=== PATIENT | female | born 2000 | race Caucasian/White ===

== ENCOUNTER 2022-03-31 12:21 | Outpatient (CLI) | payer MEDICAID ==
[2022-04-01 11:47] LABS: SARS-CoV-2 PCR by NAA Not Detected (NotDetected)
== END 2022-03-31 12:22 | disposition home or self-care (01) ==
LOC: CSHLAB 12:21
PROVIDERS: ATTEND Family Medicine
DX: Z20.822 Contact with and (suspected) exposure to COVID-19 (principal)
CPT/HCPCS: U0003; U0005

== ENCOUNTER 2022-04-03 19:00 | Inpatient (IN) | payer MEDICAID, OTHER ==
[2022-04-05] MEDS ORDERED: Bupivacaine HCl 0.5%/Epinephrine 1:200,000/PF 30 ml Vial ONE (08:00)
[2022-04-05] MEDS ORDERED: Bupivacaine 0.25% HCL 30 ML VIAL ONE (08:00)
[2022-04-05] MEDS ORDERED: Misoprostol 200 MCG TAB PR PRN (19:02)
[2022-04-05] MEDS ORDERED: Promethazine HCl 25 MG/ML VIAL IM PRN (19:02)
[2022-04-05] MEDS ORDERED: hydrALAZINE 20 MG/ML VIAL SLOW IVP PRN (19:02)
[2022-04-05] MEDS ORDERED: Acetaminophen 500 MG TAB PO PRN (19:02)
[2022-04-05] MEDS ORDERED: Ondansetron PF 4 MG/2 ML Vial IVP PRN (19:02)
[2022-04-05] MEDS ORDERED: Lidocaine 1% (PF) 30 ML VIAL SC PRN (19:02)
[2022-04-05] MEDS ORDERED: Diphenoxylate HCl/Atropine Tablet PO PRN (19:02)
[2022-04-05] MEDS ORDERED: Ibuprofen 800 MG TAB PO PRN (19:02)
[2022-04-05] MEDS ORDERED: Carboprost 250 MCG/ML AMP IM PRN (19:02)
[2022-04-05] MEDS ORDERED: Methylergonovine 0.2 MG/ML VIAL IM PRN (19:02)
[2022-04-05 22:27] LABS: Hemoglobin 12.1 g/dL (12.0-15.5); Mean Corpuscular HGB CONC 34.8 g/dL (32.0-36.0); Mean Corpuscular Hemoglobin 31.6 pg (27.0-33.0); Mean Corpuscular Volume 90.9 fl (81.6-98.3); Mean Platelet Volume 11.7 fl (7.4-10.4); Platelet Count 192 10x3/uL (150-450); RBC Distribution Width 13.4 % (11.5-14.5); Red Blood Cell (RBC) Count 3.83 10x6/uL (3.90-5.03); White Blood Cell (WBC) Count 12.1 10x3/uL (3.5-10.5)
[2022-04-05 23:01] LABS: Hep B Surf Ag Non-Reactive S/CO (NonReactive); Syphilis Antibody Nonreactive (Nonreactive); Syphilis Antibody Index 0.05 S/CO (<1.00 Non-Reactive)
[2022-04-05 23:03] LABS: HBSAg Index 0.15 S/CO (0-0.99)
[2022-04-05 23:06] VITALS: BMI 32.5
[2022-04-05] MEDS ORDERED: NS w/ Oxytocin 30 units 500 ML IV SCH ×2 (23:59)
[2022-04-05] MEDS ORDERED: Misoprostol 100 MCG TAB VAG SCH (23:59)
[2022-04-05] MEDS ORDERED: Penicillin G Potassium 5 MILL.UNITS in Sodium Chloride 0.9% 100 ML IVPB SCH (23:59)
[2022-04-06] MEDS ORDERED: Fentanyl 2 mcg/Bup 0.1% Cadd 100 ML ONE (02:51)
[2022-04-06] MEDS ORDERED: ePHEDrine Sulfate 50 MG/10 ML VIAL SLOW IVP PRN (04:00)
[2022-04-06] MEDS ORDERED: Moisturizing Cream (Eucerin) 113 GM JAR TOP PRN (04:00)
[2022-04-06] MEDS ORDERED: Communication Order-Pharmacy FS SCH (04:00)
[2022-04-06] MEDS ORDERED: diphenhydrAMINE 50 MG/ML VIAL IVP PRN (04:00)
[2022-04-06] MEDS ORDERED: Naloxone HCl 0.4 mg/ml Vial IVP PRN ×2 (04:00)
[2022-04-06] MEDS ORDERED: Ondansetron PF 4 MG/2 ML Vial IVP PRN (04:00)
[2022-04-06] MEDS ORDERED: Promethazine HCl 25 MG/ML VIAL IM PRN (04:00)
[2022-04-06] MEDS ORDERED: Acetaminophen 325 MG TAB PO PRN (04:00)
[2022-04-06] MEDS ORDERED: Lactated Ringer's 500 ML IV PRN (04:00)
[2022-04-06] MEDS: Penicillin G 2.5 MILL.units 2.5 MILL.UNITS in Premix Bag 1 BAG IVPB SCH ×4 (05:12→19:18)
[2022-04-06] MEDS: Fentanyl 2 mcg/Bupivacaine 0.1% Cassette 100 ML EPIDURAL SCH ×2 (11:35→18:00)
[2022-04-06] MEDS: Lactated Ringer's 1,000 ML IV SCH ×2 (11:37→18:08)
[2022-04-06] MEDS ORDERED: Dextrose 5%-Lactated Ringers 1,000 ML IV SCH (12:30)
[2022-04-06] MEDS ORDERED: Ampicillin 2 GM VIAL ONE (23:47)
[2022-04-06] MEDS: Ampicillin 2 GM in Sodium Chloride 0.9% 100 ML IVPB SCH (23:55)
[2022-04-06] MEDS ORDERED: Gentamicin 400 MG in Sodium Chloride 0.9% 100 ML IVPB SCH (23:59)
[2022-04-06] MEDS ORDERED: Acetaminophen 500 MG TAB PO SCH (23:59)
[2022-04-07] MEDS ORDERED: Azithromycin 500 MG VIAL ONE (00:58)
[2022-04-07] MEDS ORDERED: Bicitra 30 ML UDCUP PO PRN (00:59)
[2022-04-07] MEDS ORDERED: ceFAZolin 2 GM/Dextrose 50 ML IVPB ONE (00:59)
[2022-04-07] MEDS ORDERED: Famotidine/PF 20 mg/2ml Vial SLOW IVP PRN (00:59)
[2022-04-07] MEDS ORDERED: ceFAZolin 2 GM/Dextrose 50 ML 2 GM in Premix Bag 1 BAG IVPB SCH (01:00)
[2022-04-07] MEDS ORDERED: Azithromycin 500 MG in Sodium Chloride 0.9% 250 ML 250 ML IVPB SCH (01:00)
[2022-04-07] MEDS ORDERED: Ondansetron PF 4 MG/2 ML Vial ONE (01:25)
[2022-04-07] MEDS ORDERED: Oxytocin 10 UNITS/ML VIAL ONE (01:25)
[2022-04-07] MEDS ORDERED: Morphine PF 10 MG/10 ML VIAL ONE (01:25)
[2022-04-07] MEDS ORDERED: Dexamethasone 4 mg/ml Vial ONE (01:25)
[2022-04-07] MEDS ORDERED: Phenylephrine 40 MG/NS 250 ML 250 ML ONE (01:27)
[2022-04-07] MEDS ORDERED: Promethazine HCl 25 MG SUPP PR PRN (01:35)
[2022-04-07] MEDS ORDERED: Ketorolac Tromethamine 30 MG/ML VIAL IVP PRN (01:35)
[2022-04-07] MEDS ORDERED: Promethazine HCl 25 MG/ML VIAL IM PRN ×2 (01:35→08:35)
[2022-04-07] MEDS ORDERED: Ondansetron PF 4 MG/2 ML Vial IVP PRN ×2 (01:35→08:35)
[2022-04-07] MEDS ORDERED: Ondansetron HCl/PF 4 MG/2 ML Vial IVP PRN (01:35)
[2022-04-07] MEDS ORDERED: Naloxone HCl 0.4 mg/ml Vial IVP PRN ×2 (01:35)
[2022-04-07] MEDS ORDERED: diphenhydrAMINE 50 MG/ML VIAL IVP PRN (01:35)
[2022-04-07] MEDS ORDERED: Meperidine HCl/PF 25 MG/ML VIAL SLOW IVP PRN (01:35)
[2022-04-07] MEDS ORDERED: Fentanyl 100 MCG/2 ML VIAL SLOW IVP PRN (01:35)
[2022-04-07] MEDS ORDERED: Moisturizing Cream (Eucerin) 113 GM JAR TOP PRN (01:35)
[2022-04-07] MEDS ORDERED: Naloxone HCl 0.4 mg/ml Vial IV PRN (01:35)
[2022-04-07] MEDS ORDERED: Communication Order-Pharmacy FS SCH (01:45)
[2022-04-07] MEDS ORDERED: Ketorolac Tromethamine 30 MG/ML VIAL IVP SCH (01:45)
[2022-04-07] MEDS ORDERED: Ketamine 50 MG/ML (10ML VIAL) ONE (01:46)
[2022-04-07] MEDS ORDERED: Midazolam HCl 2 mg/2 ml Vial ONE (01:46)
[2022-04-07 03:01] LABS: Prothrombin Time 10.6 sec (9.5-12.1)
[2022-04-07 03:09] LABS: PTT 33.7 sec (22.0-33.0)
[2022-04-07 03:15] LABS: Hemoglobin 10.9 g/dL (12.0-15.5); Mean Corpuscular HGB CONC 33.4 g/dL (32.0-36.0); Mean Corpuscular Hemoglobin 31.3 pg (27.0-33.0); Mean Corpuscular Volume 93.7 fl (81.6-98.3); Mean Platelet Volume 12.1 fl (7.4-10.4); Platelet Count 161 10x3/uL (150-450); RBC Distribution Width 13.7 % (11.5-14.5); Red Blood Cell (RBC) Count 3.48 10x6/uL (3.90-5.03); White Blood Cell (WBC) Count 17.1 10x3/uL (3.5-10.5)
[2022-04-07 04:06] LABS: D-Dimer Test 5.13 mg/L FEU (0.19-0.50)
[2022-04-07] MEDS ORDERED: Lactated Ringer's 1,000 ML IV SCH (07:00)
[2022-04-07] MEDS: Ampicillin 2 GM in Sodium Chloride 0.9% 100 ML IVPB SCH ×3 (07:06→17:20)
[2022-04-07] MEDS ORDERED: hydrALAZINE 20 MG/ML VIAL SLOW IVP PRN (08:35)
[2022-04-07] MEDS ORDERED: diphenhydrAMINE 25 MG CAP PO PRN (08:35)
[2022-04-07] MEDS ORDERED: NS w/ Oxytocin 30 units 500 ML IV SCH (08:35)
[2022-04-07] MEDS ORDERED: Bisacodyl 10 MG SUPP PR PRN (08:35)
[2022-04-07] MEDS ORDERED: Acetaminophen 325 MG TAB PO PRN (08:35)
[2022-04-07] MEDS ORDERED: Lanolin Ointment 7 GM TUBE TOP PRN (08:35)
[2022-04-07] MEDS ORDERED: Boostrix 0.5 ML (Tdap) VIAL IM ONE (08:35)
[2022-04-07] MEDS ORDERED: Simethicone Chewable 80 MG TAB PO PRN (08:35)
[2022-04-07] MEDS ORDERED: Ibuprofen 800 MG TAB PO SCH (09:00)
[2022-04-07] MEDS: Docusate 100 MG CAP PO SCH ×2 (09:07→21:37)
[2022-04-07] MEDS: Lactated Ringer's 1,000 ML IV SCH (09:07)
[2022-04-07] MEDS: Ferrous Sulfate 325 MG TAB PO SCH ×2 (09:07→21:12)
[2022-04-07] MEDS: Prenatal Vitamin 1 TAB PO SCH (09:08)
[2022-04-07] MEDS: Penicillin G 2.5 MILL.units 2.5 MILL.UNITS in Premix Bag 1 BAG IVPB SCH (09:26)
[2022-04-07 09:27] LABS: Hemoglobin 10.4 g/dL (12.0-15.5); Mean Corpuscular Volume 88.4 fl (81.6-98.3); Mean Platelet Volume 11.9 fl (7.4-10.4); Platelet Count 169 10x3/uL (150-450); RBC Distribution Width 15.7 % (11.5-14.5); Red Blood Cell (RBC) Count 3.36 10x6/uL (3.90-5.03); White Blood Cell (WBC) Count 20.8 10x3/uL (3.5-10.5)
[2022-04-07] MEDS ORDERED: Gentamicin 400 MG in Sodium Chloride 0.9% 100 ML IVPB SCH (09:30)
[2022-04-07] MEDS: Ibuprofen 800 MG TAB PO SCH ×2 (13:51→21:36)
[2022-04-07] MEDS: HYDROcodone/Acetaminophen 5/325 mg Tablet PO PRN ×2 (13:52→20:07)
[2022-04-08] MEDS: Ampicillin 2 GM in Sodium Chloride 0.9% 100 ML IVPB SCH ×2 (00:52→05:36)
[2022-04-08] MEDS: Ibuprofen 800 MG TAB PO SCH ×3 (05:36→22:04)
[2022-04-08] MEDS ORDERED: Butorphanol Tartrate 1 MG/ML VIAL SLOW IVP SCH (06:15)
[2022-04-08] MEDS: Lactated Ringer's 1,000 ML IV SCH ×2 (07:45→11:39)
[2022-04-08] MEDS: Ferrous Sulfate 325 MG TAB PO SCH ×2 (09:00→22:04)
[2022-04-08] MEDS: Prenatal Vitamin 1 TAB PO SCH (10:31)
[2022-04-08] MEDS: Docusate 100 MG CAP PO SCH ×2 (10:31→22:04)
[2022-04-08] MEDS: HYDROcodone/Acetaminophen 5/325 mg Tablet PO PRN ×2 (10:31→14:38)
[2022-04-09] MEDS: Ibuprofen 800 MG TAB PO SCH (05:40)
[2022-04-09] MEDS: Lactated Ringer's 1,000 ML IV SCH (07:46)
[2022-04-09] MEDS: Prenatal Vitamin 1 TAB PO SCH (08:37)
[2022-04-09] MEDS: Docusate 100 MG CAP PO SCH (08:37)
[2022-04-09] MEDS: Ferrous Sulfate 325 MG TAB PO SCH (08:42)
[2022-04-09 09:11] VITALS: BP 126/68; TEMP 98.5
[2022-04-09] MEDS: HYDROcodone/Acetaminophen 5/325 mg Tablet PO PRN (09:54)
== END 2022-04-09 12:30 | disposition home or self-care (01) | DRG 786 ==
LOC: CSHLD 04-05 18:40 → CSHPP 04-07 08:15
PROVIDERS: ADMIT Family Medicine; ATTEND Family Medicine
PROC: 3E033VJ Introduction of Other Hormone into Peripheral Vein, Percutaneous Approach (ICD-10-PCS; 2022-04-06)
PROC: 10907ZC Drainage of Amniotic Fluid, Therapeutic from Products of Conception, Via Natural or Artificial Opening (ICD-10-PCS; 2022-04-06)
PROC: 10H07YZ Insertion of Other Device into Products of Conception, Via Natural or Artificial Opening (ICD-10-PCS; 2022-04-06)
PROC: 10D00Z1 Extraction of Products of Conception, Low, Open Approach (ICD-10-PCS; principal; 2022-04-07)
PROC: 30233N1 Transfusion of Nonautologous Red Blood Cells into Peripheral Vein, Percutaneous Approach (ICD-10-PCS; 2022-04-07)
PROC: 30233K1 Transfusion of Nonautologous Frozen Plasma into Peripheral Vein, Percutaneous Approach (ICD-10-PCS; 2022-04-07)
DX: O48.0 Post-term pregnancy (principal); O41.1230 Chorioamnionitis, third trimester, not applicable or unspecified; O72.1 Other immediate postpartum hemorrhage; Z37.0 Single live birth; Z3A.41 41 weeks gestation of pregnancy; O99.824 Streptococcus B carrier state complicating childbirth; Z79.899 Other long term (current) drug therapy; O77.0 Labor and delivery complicated by meconium in amniotic fluid; O76 Abnormality in fetal heart rate and rhythm complicating labor and delivery; O32.4XX0 Maternal care for high head at term, not applicable or unspecified; O32.8XX0 Maternal care for other malpresentation of fetus, not applicable or unspecified; O62.1 Secondary uterine inertia
CPT/HCPCS: 36415; 36430; 51702; 82805; 85027; 85049; 85300; 85362; 85379; 85384; 85610; 85730; 86780; 86850; 86900; 86901; 87340; 88307; J0290; J1100; J1580; J1885; J2250; J2274; J2405; J2540; J2590; J3490; J7120; P9016; P9059; S0020